=== PATIENT | female | born 1935 | race Caucasian/White ===

== ENCOUNTER 2017-04-18 15:07 | Inpatient (IN) | payer MEDICARE, BC ==
--- NOTE | 2017-04-18 15:21 | ERNOTE ---
Lower Extremity HPI - General Lower Extremities Pain: leg: left Time Seen by Provider: 04/18/17 15:07 Source: patient, EMS Exam Limitations: no limitations - Immun/Allergies/Home Medications Allergies/Adverse Reactions: Allergies Allergy/AdvReac Type Severity Reaction Status Date / Time whole graines Allergy Uncoded 04/18/17 15:23 Home Medications: HOME MEDICATIONS Albuterol Sulfate [Proair Respiclick] 90 mcg IH PRN PRN 04/18/17 [Last Taken Unknown] Calc/D3/Mag/Zn/Noel/Andriy/[place] [Calcium 600 mg Plus Vit D Tab] 1 each PO DAILY 04/18/17 [Last Taken Unknown] Cholecalciferol (Vitamin D3) [Vitamin D3] 1,000 unit PO DAILY 04/18/17 [Last Taken Unknown] Clobetasol Propionate/Emoll [Clobetasol Emollient 0.05% Crm] 1 appl TP DAILY PRN 04/18/17 [Last Taken Unknown] Gabapentin 300 mg PO HS 04/18/17 [Last Taken Unknown] Metoprolol Tartrate [Lopressor] 50 mg PO BID 04/18/17 [Last Taken Unknown] Polyethylene Glycol 3350 [Miralax] 17 gm PO DAILY 04/18/17 [Last Taken Unknown] Sertraline HCl [Zoloft] 50 mg PO DAILY 04/18/17 [Last Taken Unknown] traMADol HCL [Ultram] 50 mg PO PRN 04/18/17 [Last Taken Unknown] - History of Present Illness Narrative: Patient fell on the side walk on her left side, was unable to get up, EMS reported deformity,unable to palpate pulse, applied traction and were able to palpate pulse, fentanyl given for pain. Patient denies hitting her head, no loss of consciousness, no other injuries. She has melon before 09:30 and two cups of coffee till 12:30 Review of Systems - Review of Systems Constitutional: Absent: recent illness, fever EYE: Absent: vision changes ENT: Absent: sore throat Respiratory: Absent: shortness of breath Cardiology: Absent: chest pain Gastrointestinal/Abdominal: Present: nausea. Absent: vomiting, abdominal pain Genitourinary: Present: no symptoms reported Musculoskeletal: Present: no symptoms reported. Absent: back pain, neck pain Neurological: Absent: headache, weakness, numbness - Patient's Past Medical History Patient History - Medical: No pertinent hx Patient History - Cardiac/Respiratory: COPD, Hypertension Patient History - Cancer: No Hx of Cancer Patient History - Surgical Procedures: Hysterectomy - Family History Mother Family History - Medical: , Arthritis, Glaucoma Family History - Cancer: Bone Father Family History - Medical: , No pertinent hx Family History - Cardiac/Respiratory: No pertinent hx Family History - Cancer: No pertinent family hx Physical Exam - Physical Exam General Appearance: Present: wd/wn, alert, mild distress Head Exam: Present: normal inspection, no evidence of injury Ears, Nose, Throat: Present: normal pharynx Neck: Present: normal inspection, nontender Respiratory: Present: no respiratory distress, normal breath sounds, no accessory muscle use, lungs clear Cardiovascular/Chest: Present: regular rate, rhythm, no murmur Peripheral Pulses: N=norm/S=strong/W=weak/B=bound/A=absent: Dorsalis-pedis (L): Weak Gastrointestinal/Abdominal: Present: normal bowel sounds, nontender, nondistended Back Exam: Present: no CVA tenderness, no vertebral tenderness Extremity Exam: Present: normal except - - left femur shortened and visiable deformed, no other pain Neurological Exam: Present: alert, oriented, normal mood/affect, no motor/ sensory deficits Skin Exam: Present: normal color, warm/dry ED Progress - Vital Signs Patient's Vital Signs:: I have reviewed the patient's vital signs. - X-Ray X-Ray #1 X-Ray: femur - left femur shaft fracture Interpretation: Interp. by me - Progress/Reassessment Progress Note-Subjective: 04/18/17 16:[address] Young, call anesthesia for procedure 04/18/17 17:52 as required femur nail is not available till later, patient will be admitted and have surgery in the am patient comfortable after pain medication Departure Clinical Impression: Femur fracture, left Qualifiers: Encounter type: initial encounter Femur location: shaft Fracture type: closed Fracture morphology: transverse Fracture alignment: displaced Qualified Code(s) : S72.322A - Displaced transverse fracture of shaft of left femur, initial encounter for closed fracture - Departure Disposition: [facility] Condition: Good
[2017-04-18] MEDS ORDERED: ONDANSETRON HCL/PF 2 MG/ML VIAL ONE (15:27)
[2017-04-18] MEDS ORDERED: ONDANSETRON HCL/PF 2 MG/ML VIAL IV ONE (15:29)
[2017-04-18] MEDS ORDERED: HYDROmorphone HCL 1 MG/ML DISP.SYRIN ONE (16:12)
[2017-04-18] MEDS ORDERED: HYDROmorphone HCL 1 MG/ML DISP.SYRIN IV ONE (16:12)
[2017-04-18] MEDS ORDERED: HYDROmorphone HCL 1 MG/ML DISP.SYRIN IV PRN (17:44)
[2017-04-18] MEDS ORDERED: ACETAMINOPHEN 500 MG TABLET PO PRN (17:44)
--- NOTE | 2017-04-18 17:51 | CONS ---
[facility] - General Date of Service: 04/18/17 Narrative: Kate is an 81 yo F who sustained a L proximal third femoral shaft fracture after a fall from standing height. She was initially brought to the [facility] ED for evaluation. Workup revealed the above fracture and no other injuries. She was placed in a traction device in the field and upon initial evaluation in the ED she had dopplerable but non-palpable pulses. Upon my evaluation in the ED, I removed the traction device, which was making the fracture angulation worse, and pulled longitudinal traction placing the leg in better alignment. Following this, she had a palpable DP and PT pulse. She complains only of L thigh pain in the ED. She denies LOC or any other extremity pain. She denies any numbness or tingling in the LLE. - History of Present Illness Allergies/Adverse Reactions: Allergies whole graines Allergy (Uncoded 04/18/17 15:23) Home Medications: Home Medications Medication Instructions Recorded Last Taken Albuterol Sulfate [Proair 90 mcg IH PRN PRN 04/18/17 Unknown Respiclick] Calc/D3/Mag/Zn/Noel/Andriy/[place] 1 each PO DAILY 04/18/17 Unknown [Calcium 600 mg Plus Vit D Tab] Cholecalciferol (Vitamin D3) 1,000 unit PO DAILY 04/18/17 Unknown [Vitamin D3] Clobetasol Propionate/Emoll 1 appl TP DAILY PRN 04/18/17 Unknown [Clobetasol Emollient 0.05% Crm] Diphenhydramine HCl 25 mg PO PRN 04/18/17 Unknown Gabapentin 300 mg PO HS 04/18/17 Unknown Lisinopril [Zestril] 40 mg PO DAILY 04/18/17 Unknown Metoprolol Tartrate [Lopressor] 50 mg PO BID 04/18/17 Unknown Polyethylene Glycol 3350 [Miralax] 17 gm PO DAILY 04/18/17 Unknown Sertraline HCl [Zoloft] 50 mg PO DAILY 04/18/17 Unknown traMADol HCL [Ultram] 50 mg PO PRN 04/18/17 Unknown - Patient's Past Medical History Patient History - Medical: Osteoporosis Patient History - Cardiac/Respiratory: COPD, Hypertension Patient History - Surgical Procedures: Appendectomy, Hysterectomy Patient History - Other: None - Social History Psych History: No pertinent hx Smoking Status: Former smoker Alcohol Use: none Drug Use: none - Immunizations Immunizations Up to Date: Yes Procedures ENDOSC POLYPECTOMY OF LG INTEST (06/19/06) ESOPHAGOGASTRODUODENOSCOPY [EGD] W/CLOSED BIOPSY (06/19/06) Review of Systems - Review of Systems Narrative: As per HPI, otherwise negative. Physical Examination - Exam Narrative: Gen: A&Ox4, NAD, resting comfortably Resp: breathing non-labored, O2 sats 96% on RA MSK: LLE--> obvious deformity of the proximal thigh with anterior and lateral angulation deformity at the fracture site, no open wounds or abrasions, SILT, 5/ 5 EHL/FHL/DF/PF, palpable DP and PT pulses following gentle reduction maneuver with longitudinal traction Radiology: Plain films of the L femur reviewed which demonstrate an oblique fracture of the proximal third femoral shaft with significant anterolateral angulation, no fracture of the femoral neck noted. Vital Signs: Vital Signs - Last Taken Temp 36.3 C L 04/18/17 15:14 Pulse 41 L 04/18/17 17:11 Resp 15 04/18/17 17:11 BP 148/41 04/18/17 17:11 Pulse Ox 97 04/18/17 17:11 O2 Oxygen Delivery Method Room Air - Results and Findings: Narrative: 81 yo F w/ L proximal third femoral shaft fracture. - admit to Ortho service - discussed treatment options with the patient in detail and recommended antegrade intramedullary femoral nailing based on the fracture pattern and location. I discussed the risks of surgery in detail with the patient including , but not limited to, infection, bleeding, neurovascular injury, malunion/ nonunion, malrotation, persistent pain, stiffness, implant failure, wound complications, DVT/PE, anesthetic complications, and postoperative convalescence. I explained that the benefit of the surgery is to be able to get her up and mobilizing without restrictions right away after surgery. After discussion, she wishes to proceed with intramedullary nailing of the L femur. Informed consent obtained in the ED. Extremity marked. - We do not have antegrade femoral nails in house, they have to be brought in and won't be here until at least 10 pm, therefore we will plan on doing this first thing in the morning. We will place the patient in 20 lbs of Muñiz's traction overnight with IV pain control. - Dilaudid 0.5 mg q2h prn pain - Valium for muscle spasms - NPO @ MN - hold anticoagulation in preparation for surgery - SCDs/chula blakely - peters catheter - Medicine consult for medical co-management - Assessments/Findings (1) Femur fracture, left Problem: Acute
[2017-04-18] MEDS ORDERED: CLOBETASOL PROPIONATE/EMOLL 60 APPL TUBE TP PRN (17:55)
[2017-04-18 18:14] LABS: Hematocrit 34.8 % (37.0-47.0); Hemoglobin 11.6 gm/dL (12.5-16.0); Mean Cell Volume 91.8 fl (78-100); Mean Corpuscular Hemoglobin 30.6 pg (27-31); Mean Corpuscular Hgb Conc 33.3 g/dl (32-36); Mean Platelet Volume 9.9 fl (6.0-9.5); Neutrophil # 10.5 K/mm3 (1.3-6.0); Neutrophil % 80.8 % (42-75.0); Platelet Count 193 K/mm3 (150-450); Red Blood Count 3.79 M/mm3 (4.2-5.4); Red Cell Distribution Width 13.2 % (11.5-14.0)
[2017-04-18] MEDS: oxyCODONE HCL/ACETAMINOPHEN 1 TAB TABLET PO PRN (18:24)
[2017-04-18 18:42] LABS: Anion Gap 12.6 mmol/L (6.8-13.8); BUN/Creatinine Ratio 24.3 (9.0-21.6); Calcium * 8.7 mg/dL (7.9-10.9); Estimated Creat Clear 35.7; Potassium 4.6 mmol/L (3.4-4.6)
[2017-04-18] MEDS ORDERED: ALBUTEROL SULFATE 60 PUFF INHALER IH PRN ×2 (18:47→18:50)
[2017-04-18] MEDS: HYDROmorphone HCL 1 MG/ML DISP.SYRIN IV PRN ×2 (18:52→22:11)
[2017-04-18] MEDS: DIAZEPAM 5 MG/ML SYRG IV PRN (18:58)
--- NOTE | 2017-04-18 21:03 | HP ---
Chief Complaint - Chief Complaint Date of Service: 04/18/17 Time of Service: 20:40 Chief Complaint: left femur fracture, medical management History of Present Illness: Kate is an 81 year old female patient of Dr Olivas with a PMH of HTN, GERD, JAMES, COPD, HLD, and osteoporosis who presented to the ER today with c/o left hip pain s/p fall. Patient states that she was walking on an uneven sidewalk when she became unsteady and fell, landing on her left side. ER eval revealed elevated wbc at 13.0 with 80.0% neutrophils. h/h 11.6/34.8 (last hgb check this year was 12.5). Bun/Cr 25/1.03. Femur xray showed acute angulated transverse fracture to the proximal femoral diaphysis. Dr. Young (orthopedics) was consulted by ERP who recommended surgical repair but due to the pins not in stock till late tonight, surgery has been scheduled for tomorrow morning. Medicine was consulted for medical management of the patient before and after surgery. - Patient's Past Medical History Patient History - Medical: Anxiety - 1986, GERD - 2005, Osteoporosis - 02/26/06, Other - hiatal hernia, large, 08/1999; lichen sclerosis - 12/24/2011; urinary incontinence Patient History - Cardiac/Respiratory: COPD - uses albuterol inhaler only prn, Hypertension - 1986, Hyperlipidemia - 1988, Other - palpitations - 1986 Patient History - Cancer: No Hx of Cancer Patient History - Surgical Procedures: Appendectomy - 1983, Colonoscopy - - diminutive polyp, melanosis coli, tortuous colon; , EGD - 06/19/06 - large hital hernia, possible hypertrophied fold due to pyloric sphincter, chronic inflammation; , Hysterectomy - 1968, T & A, Other - exploratory lap done for adhesions - 1983 Patient History - Other: None LMP (females 10-50): Menopausal - Family History Mother Family History - Medical: , Arthritis, Glaucoma Family History - Cancer: Bone Father Family History - Medical: , No pertinent hx Family History - Cardiac/Respiratory: No pertinent hx Family History - Cancer: No pertinent family hx - Social History Living Situations: other Abuse History: No History of abuse Psych History: No pertinent hx Smoking Status: Former smoker - 1/2 PPD for 10 years - quit before 1963. Have you smoked in the past 12 months: No Do you dip or chew tobacco: No Patient requests Smoking Cessation Consult: No Initiate information on Smoking Cessation: No Alcohol Use: none Drug Use: none - Immunizations Immunizations Up to Date: Yes Review Of Systems (GEN) - Review of Systems Generalized/Overall Review: Present: No Symptoms Reported EENTM: Present: No Symptoms Reported Respiratory: Present: No Symptoms Reported Cardiac: Present: No Symptoms Reported Abdominal: Present: No Symptoms Reported Genitourinary: Present: Frequency, Incontinent Musculoskeletal: Present: Joint Pain Neurological: Present: No Symptoms Reported Skin: Present: No Symptoms Reported Endocrine: Present: No Symptoms Reported Misc: All systems neg except as marked Immunizations: IMMUNIZATION HX Immunizations Up to Date Yes Allergies/Adverse Reactions: Allergies Allergy/AdvReac Type Severity Reaction Status Date / Time whole graines Allergy Uncoded 04/18/17 15:23 Home Medications: HOME MEDICATIONS Albuterol Sulfate [Proair Respiclick] 90 mcg IH PRN PRN 04/18/17 [Last Taken Unknown] Calc/D3/Mag/Zn/Noel/Andriy/[place] [Calcium 600 mg Plus Vit D Tab] 1 each PO DAILY 04/18/17 [Last Taken Unknown] Cholecalciferol (Vitamin D3) [Vitamin D3] 1,000 unit PO DAILY 04/18/17 [Last Taken Unknown] Clobetasol Propionate/Emoll [Clobetasol Emollient 0.05% Crm] 1 appl TP DAILY PRN 04/18/17 [Last Taken Unknown] Gabapentin 300 mg PO HS 04/18/17 [Last Taken Unknown] Metoprolol Tartrate [Lopressor] 50 mg PO BID 04/18/17 [Last Taken Unknown] Polyethylene Glycol 3350 [Miralax] 17 gm PO DAILY 04/18/17 [Last Taken Unknown] Sertraline HCl [Zoloft] 50 mg PO DAILY 04/18/17 [Last Taken Unknown] traMADol HCL [Ultram] 50 mg PO PRN 04/18/17 [Last Taken Unknown] Exam - Exam Vital Signs: Vital Signs - Last Taken Temp 36.7 C 04/18/17 17:58 Pulse 43 L 04/18/17 17:58 Resp 16 04/18/17 17:58 BP 132/81 04/18/17 17:58 Pulse Ox 99 04/18/17 17:58 Constitutional: Present: Alert, Oriented x3, Cooperative, No distress, Elderly ENT Exam: Present: hearing grossly normal Eye Exam: bilateral eye: normal inspection Neck: Present: supple Back Exam: Present: no vertebral tenderness Breasts: Present: Exam deferred Respiratory: Present: lungs clear, normal breath sounds, no respiratory distress , no accessory muscle use Cardiovascular/Chest: Present: normal peripheral pulses, regular rate, rhythm, no chest tenderness, no edema, bradycardia Peripheral Pulses: carotid (R): 2+, carotid (L): 2+, dorsalis-pedis (R): 2+, dorsalis-pedis (L): 1+, radial (R): 2+, radial (L): 2+ Abdomen: Present: Normal bowel sounds, soft, nontender, nondistended /Rectal: Present: Exam deferred Extremity: Present: normal inspection - right leg, leg pain - left Skin Exam: Present: warm/dry, no cyanosis, pallor Diagnostic Studies: Abnormal Lab Results 04/18/17 04/18/17 Range/Units 18:10 18:10 WBC 13.0 H (4.0-10.5) K/mm3 RBC 3.79 L (4.2-5.4) M/mm3 Hgb 11.6 L (12.5-16.0) gm/dL Hct 34.8 L (37.0-47.0) % MPV 9.9 H (6.0-9.5) fl Immature Gran # (Auto) 0.04 H (0.000-0.0310) K/mm3 Neutrophils % 80.8 H (42-75.0) % Lymphocytes % 13.5 L (20-51) % Neutrophils # 10.5 H (1.3-6.0) K/mm3 BUN 25 H (3-23) mg/dL Est GFR (Non-Af Amer) 54 L (60-130) mL/min BUN/Creatinine Ratio 24.3 H (9.0-21.6) Random Glucose 132 H (70-110) mg/dL Laboratory Results WBC 13.0 K/mm3 (4.0-10.5) H 04/18/17 18:10 RBC 3.79 M/mm3 (4.2-5.4) L 04/18/17 18:10 Hgb 11.6 gm/dL (12.5-16.0) L 04/18/17 18:10 Hct 34.8 % (37.0-47.0) L 04/18/17 18:10 MCV 91.8 fl (78-100) 04/18/17 18:10 MCH 30.6 pg (27-31) 04/18/17 18:10 MCHC 33.3 g/dl (32-36) 04/18/17 18:10 RDW 13.2 % (11.5-14.0) 04/18/17 18:10 Plt Count 193 K/mm3 (150-450) 04/18/17 18:10 MPV 9.9 fl (6.0-9.5) H 04/18/17 18:10 Immature Gran % (Auto) 0.30 % (0.001-0.429) 04/18/17 18:10 Immature Gran # (Auto) 0.04 K/mm3 (0.000-0.0310) H 04/18/17 18:10 Neutrophils % 80.8 % (42-75.0) H 04/18/17 18:10 Lymphocytes % 13.5 % (20-51) L 04/18/17 18:10 Monocytes % 4.7 % (0.0-9) 04/18/17 18:10 Eosinophils % 0.5 % (0.0-3.0) 04/18/17 18:10 Basophils % 0.2 % (0.0-1.0) 04/18/17 18:10 Nucleated RBC % 0.0 k/mm3 (0-1) 04/18/17 18:10 Neutrophils # 10.5 K/mm3 (1.3-6.0) H 04/18/17 18:10 Lymphocytes # 1.8 k/mm3 (1.5-3.5) 04/18/17 18:10 Monocytes # 0.6 k/mm3 (0.0-1.0) 04/18/17 18:10 Eosinophils # 0.1 k/mm3 (0.0-0.7) 04/18/17 18:10 Absolute Basophils 0.0 k/mm3 (0.0-0.1) 04/18/17 18:10 Sodium 140 mmol/L (132-142) 04/18/17 18:10 Plasma Sodium 141 mmol/L (130-142) 04/18/17 18:10 Potassium 4.6 mmol/L (3.4-4.6) 04/18/17 18:10 Chloride 104 mmol/L (97-106) 04/18/17 18:10 Carbon Dioxide 28.0 mmol/L (24-32.6) 04/18/17 18:10 Anion Gap 12.6 mmol/L (6.8-13.8) 04/18/17 18:10 BUN 25 mg/dL (3-23) H 04/18/17 18:10 Creatinine 1.03 mg/dL (0.4-1.4) 04/18/17 18:10 Est GFR (Non-Af Amer) 54 mL/min (60-130) L 04/18/17 18:10 BUN/Creatinine Ratio 24.3 (9.0-21.6) H 04/18/17 18:10 Random Glucose 132 mg/dL (70-110) H 04/18/17 18:10 Calcium 8.7 mg/dL (7.9-10.9) 04/18/17 18:10 Assessment/Plan - Narrative Narrative: Left femur fracture - currently in Muñiz's tractions per ortho - scheduled for surgical repair in am. - encourage good pain management - valium as needed for muscle spasms - NPO p MN - will start IV fluids since NPO - D5LR at 100 ml/hr - also with urinary frequency / incontience - may be normal age varient but check UA as possible contributor to fall - insert peters due to fracture - due to age, bradycardia, smoking history --> obtain preop EKG - preop EKG shows sinus bradycardia. no significant / acute change from EKG done in 2010. - OK to proceed with surgery. Bradycardia - records shows heart rate trending down over the last 2-3 years - in the last year, heart rate in clinic recorded at 40 and 44 bpm. - heart rate in hospital 43 bpm - monitor on telemetry as a precaution - hold metoprolol tonight due to bradycardia - patient uses metoprolol for HTN, in addition to lisinopril. - Can use other anti-hypertensive meds if HR remains too low but BP rises. Stable Medical conditions - HTN - lisinopril 40 mg daily - metoprolol tartarte 50 mg bid - hold for HR < 45 - HLD - diet controlled - JAMES - zoloft 25 mg daily - COPD - albuterol inhaler PRN Code Status: Full Code with Restrictions VTE: none due to surgery in am / lower extremity injury GI proph: protonix po. - Assessment/Plan (1) Femur fracture, left Problem: Acute Qualifiers: Encounter type: initial encounter Femur location: shaft Fracture type: closed Fracture morphology: transverse Fracture alignment: displaced Qualified Code(s): S72.322A - Displaced transverse fracture of shaft of left femur, initial encounter for closed fracture (2) HTN (hypertension) Problem: Chronic Qualifiers: Hypertension type: essential hypertension Qualified Code(s): I10 - Essential (primary) hypertension (3) HLD (hyperlipidemia) Problem: Chronic Qualifiers: Hyperlipidemia type: unspecified Qualified Code(s): E78.5 - Hyperlipidemia , unspecified (4) JAMES (generalized anxiety disorder) Problem: Chronic (5) COPD (chronic obstructive pulmonary disease) Problem: Chronic Qualifiers: COPD type: unspecified COPD Qualified Code(s): J44.9 - Chronic obstructive pulmonary disease, unspecified (6) GERD (gastroesophageal reflux disease) Problem: Chronic Qualifiers: Esophagitis presence: without esophagitis Qualified Code(s): K21.9 - Gastro -esophageal reflux disease without esophagitis (7) Bradycardia Problem: Chronic
[2017-04-18] MEDS: METOPROLOL TARTRATE 50 MG TABLET PO SCH (21:08)
[2017-04-18 22:12] LABS: Urine Bilirubin Negative (NEGATIVE); Urine Ketone 5 mg/dL (NEGATIVE); Urine Nitrite Negative (NEGATIVE); Urine Protein Negative (NEGATIVE); Urine Specific Gravity >=1.030 SP.GR. (1.005-1.010); Urine Urobilinogen Normal (NORMAL); Urine pH 5.5 pH (5.0-7.0)
[2017-04-18 22:47] LABS: Urine Appearance Clear; Urine Bacteria 3+; Urine Blood 5 /ul (NEGATIVE); Urine Color Yellow; Urine Hyaline Cast 0-5 /LPF; Urine RBC 0-5 /hpf (0-5); Urine WBC 0-5 /hpf (0-5)
[2017-04-19] MEDS: oxyCODONE HCL/ACETAMINOPHEN 1 TAB TABLET PO PRN (01:49)
[2017-04-19] MEDS: HYDROmorphone HCL 1 MG/ML DISP.SYRIN IV PRN (01:49)
[2017-04-19] MEDS: DIAZEPAM 5 MG/ML SYRG IV PRN (02:47)
[2017-04-19] MEDS ORDERED: DIAZEPAM 5 MG/ML SYRG IV ONE (02:50)
[2017-04-19] MEDS ORDERED: FLUMAZENIL 0.1 MG/ML VIAL IV ONE ×2 (02:55)
[2017-04-19] MEDS ORDERED: HYDROmorphone HCL 1 MG/ML DISP.SYRIN IM PRN (03:08)
[2017-04-19] MEDS: DEXTROSE 5%-LACTATED RINGERS 1,000 ML IV PRN ×2 (03:11→06:55)
--- NOTE | 2017-04-19 03:22 | PN ---
Progess Note - Interim Narrative: 04/19/17 03:15 At 0245 went to check on patient. nursing establishing new IV. pt c/o severe leg cramps. states that 5 mg valium did not work at all that was given earlier tonight. Ordered an additional 5 mg iv valium. immediately after 2nd dose of iv valium was pushed, pt developed severe respiratory depression. unresponsive to sternal rub. strong radial pulse. sats dropped into the low 70s. O2 immediately applied by myself at 15 L non-rebreather mask. sats immediately increased to above 93%. orders given for romazicon 0.5 mg iv x1 now and this was given by nursing staff. once given, patient immediately awoke and once talking with patient she was A&Ox3. orders entered to d/c iv valium and will add to allergy list on patient's chart. SG
[2017-04-19] MEDS ORDERED: PANTOPRAZOLE SODIUM 40 MG in NORMAL SALINE 100 ML IV ONE (03:34)
--- NOTE | 2017-04-19 03:36 | PN ---
Subjective - Date and Time Seen Date: 04/19/17 Time: 03:27 Subjective Narrative: states hip pain is controlled with iv medications. c/o muscle cramps but states that ice helps. schedule to have left femur repaired today. Objective - Review of Systems Generalized/Overall Review: Reports: No Symptoms Reported EENTM: Reports: No Symptoms Reported Respiratory: Reports: No Symptoms Reported Cardiac: Reports: No Symptoms Reported Abdominal: Reports: No Symptoms Reported Genitourinary Symptoms: Reports: No Symptoms Reported Musculoskeletal Complaints: Reports: Joint Pain, Joint Swelling, Muscle Pain, Other - muscle cramps Neurological: Reports: No Symptoms Reported Skin: Reports: No Symptoms Reported Endocrine: Reports: No Symptoms Reported Misc: All systems neg except as marked - Vitals Vitals: Last Vital Signs Temp 36.4 C L 04/18/17 23:19 Pulse 50 L 04/18/17 23:19 Resp 20 04/18/17 23:19 BP 146/51 04/18/17 23:19 Pulse Ox 92 04/18/17 23:19 - Abnormal Lab Findings Abnormal Lab Findings: Abnormal Lab Results 04/18/17 04/18/17 04/18/17 Range/Units 18:10 18:10 22:00 WBC 13.0 H (4.0-10.5) K/mm3 RBC 3.79 L (4.2-5.4) M/mm3 Hgb 11.6 L (12.5-16.0) gm/dL Hct 34.8 L (37.0-47.0) % MPV 9.9 H (6.0-9.5) fl Immature Gran # (Auto) 0.04 H (0.000-0.0310) K/mm3 Neutrophils % 80.8 H (42-75.0) % Lymphocytes % 13.5 L (20-51) % Neutrophils # 10.5 H (1.3-6.0) K/mm3 BUN 25 H (3-23) mg/dL Est GFR (Non-Af Amer) 54 L (60-130) mL/min BUN/Creatinine Ratio 24.3 H (9.0-21.6) Random Glucose 132 H (70-110) mg/dL Urine Blood 5 H (NEGATIVE) /ul Urine Bacteria 3+ H (NONE) Hyaline Casts 0-5 H (NONE) /LPF - EKG/Xray Findings EKG: other - sinus bradycardia EKG read: Interp. by me - Exam Constitutional: Present: Alert, Cooperative, No distress, Elderly ENT Exam: Present: hearing grossly normal Neck: Present: supple Breasts: Present: Exam deferred Respiratory: Present: normal breath sounds, no respiratory distress, no accessory muscle use Cardiovascular/Chest: Present: normal peripheral pulses, regular rate, rhythm, no chest tenderness, bradycardia Abdomen: Present: soft, nontender, nondistended /Rectal: Present: Exam deferred Extremity: Present: normal inspection - right leg, leg pain - left Skin Exam: Present: warm/dry, no cyanosis, pallor Cauti Physician Documentation - Urinary Catheter Management Urethral (Peters) Urethral Indwelling: Yes Reason for Continuing Indwelling Catheter: Pelvic fractures Date of Insertion: 04/18/17 Time of Insertion: 09:45 Assessment/Plan Plan Narrative: Left femur fracture - currently in Muñiz's tractions per ortho - scheduled for surgical repair this am - encourage good pain management - c/o leg cramps - recheck bmp this am with Mg - NPO - IV fluids since NPO - D5LR at 150 ml/hr - also with urinary frequency / incontience - may be normal age varient but check UA as possible contributor to fall - peters due to fracture - preop EKG shows sinus bradycardia. no significant / acute change from EKG done in 2010. - OK to proceed with surgery. Bradycardia - records shows heart rate trending down over the last 2-3 years - in the last year, heart rate in clinic recorded at 40 and 44 bpm. - heart rate in hospital 43 bpm - monitor on telemetry as a precaution - hold metoprolol for HR <45 - patient uses metoprolol for HTN, in addition to lisinopril. - Can use other anti-hypertensive meds if HR remains too low but BP rises. Stable Medical conditions - HTN - lisinopril 40 mg daily - metoprolol tartarte 50 mg bid - hold for HR < 45 - HLD - diet controlled - JAMES - zoloft 25 mg daily - COPD - albuterol inhaler PRN Code Status: Full Code with Restrictions VTE: none due to surgery in am / lower extremity injury GI proph: protonix iv x1 dose this am due to NPO, then start protonix po daily. - Problems/Diagnosis (1) Femur fracture, left Problem: Acute Qualifiers: Encounter type: initial encounter Femur location: shaft Fracture type: closed Fracture morphology: transverse Fracture alignment: displaced Qualified Code(s): S72.322A - Displaced transverse fracture of shaft of left femur, initial encounter for closed fracture (2) HTN (hypertension) Problem: Chronic Qualifiers: Hypertension type: essential hypertension Qualified Code(s): I10 - Essential (primary) hypertension (3) HLD (hyperlipidemia) Problem: Chronic Qualifiers: Hyperlipidemia type: unspecified Qualified Code(s): E78.5 - Hyperlipidemia , unspecified (4) JAMES (generalized anxiety disorder) Problem: Chronic (5) COPD (chronic obstructive pulmonary disease) Problem: Chronic Qualifiers: COPD type: unspecified COPD Qualified Code(s): J44.9 - Chronic obstructive pulmonary disease, unspecified (6) GERD (gastroesophageal reflux disease) Problem: Chronic Qualifiers: Esophagitis presence: without esophagitis Qualified Code(s): K21.9 - Gastro -esophageal reflux disease without esophagitis (7) Bradycardia Problem: Chronic
[2017-04-19 03:59] LABS: Hematocrit 32.2 % (37.0-47.0); Hemoglobin 10.8 gm/dL (12.5-16.0); Mean Cell Volume 92.5 fl (78-100); Mean Corpuscular Hgb Conc 33.5 g/dl (32-36); Mean Platelet Volume 10.3 fl (6.0-9.5); Neutrophil # 4.7 K/mm3 (1.3-6.0); Neutrophil % 68.1 % (42-75.0); Platelet Count 161 K/mm3 (150-450); Red Blood Count 3.48 M/mm3 (4.2-5.4); Red Cell Distribution Width 13.1 % (11.5-14.0); White Blood Count 6.9 K/mm3 (4.0-10.5)
[2017-04-19 04:37] LABS: Anion Gap 10.7 mmol/L (6.8-13.8); BUN/Creatinine Ratio 24.8 (9.0-21.6); Calcium * 8.6 mg/dL (7.9-10.9); Carbon Dioxide 27.5 mmol/L (24-32.6); Estimated Creat Clear 36.4; Magnesium 1.8 mg/dL (1.2-2.8); Potassium 4.2 mmol/L (3.4-4.6)
[2017-04-19] MEDS ORDERED: ALBUTEROL SULFATE 2.5 MG/3 ML VIAL.NEB IH PRN (06:22)
[2017-04-19] MEDS ORDERED: PANTOPRAZOLE SODIUM 40 MG TABLET.EC PO SCH (07:00)
[2017-04-19] MEDS ORDERED: ceFAZolin SODIUM 1 GM VIAL IV ONE (07:25)
[2017-04-19] MEDS ORDERED: ceFAZolin SODIUM 1 GM VIAL IV PRN (07:25)
[2017-04-19] MEDS ORDERED: RINGER'S SOLUTION,LACTATED 1,000 ML IV ONE (08:00)
[2017-04-19] MEDS ORDERED: POLYETHYLENE GLYCOL 3350 119 GM BTL PO SCH (09:00)
[2017-04-19] MEDS ORDERED: LISINOPRIL 40 MG TABLET PO SCH (09:00)
[2017-04-19] MEDS ORDERED: ONDANSETRON HCL/PF 2 MG/ML VIAL IV PRN (09:49)
[2017-04-19] MEDS ORDERED: oxyCODONE HCL/ACETAMINOPHEN 1 TAB TABLET PO PRN (09:49)
[2017-04-19] MEDS ORDERED: PROMETHAZINE HCL 5 MG in DEXTROSE 5 % IN WATER 50 ML IV PRN ×2 (09:49)
[2017-04-19] MEDS ORDERED: diphenhydrAMINE HCL 50 MG/ML VIAL IV PRN (09:49)
[2017-04-19] MEDS ORDERED: MAGNESIUM HYDROXIDE 30 ML UDC PO PRN (09:49)
[2017-04-19] MEDS ORDERED: MAG HYDROX/ALUMINUM HYD/SIMETH 30 ML UDC PO PRN (09:49)
[2017-04-19] MEDS ORDERED: CYCLOBENZAPRINE HCL 10 MG TABLET PO PRN (09:51)
--- NOTE | 2017-04-19 09:58 | OR ---
Operative Report - Dictated Report Narrative: Date: 04/19/2017 Surgeon: Pedro Young M.D. Embroiderer: None Preoperative diagnosis: Left displaced, proximal third femoral shaft fracture Postoperative diagnosis: Left displaced, proximal third femoral shaft fracture Operations and procedures: 1. Closed reduction, anterograde intramedullary fixation left femoral shaft fracture 2. Intraoperative interpretation of radiographs Anesthesia: Spinal Specimens: None Estimated blood loss: 250 Milliliters Retained implants: [employer] antegrade femoral nail size 10 mm by 38 centimeter nail with 80 millimeter and 100 mm femoral head screws with 2 distal locking screws Complications: None Indications for procedure: Seth robins is an 81-year-old female with a history of mild COPD and hypertension who injured the left leg after a trip and fall from standing height on a sidewalk. They were admitted to the hospital after being evaluated in the emergency department. Once the medical provider felt that they were stable for surgical treatment, the risks and benefits alternatives were discussed. The risks of , blood clots, bleeding, infection, nerve/tendon/ blood vessel injury, malunion, nonunion, failure of implants, painful implants, arthrosis, and need for additional procedures were discussed. The extremity was marked and consent was obtained on the floor. Procedure: After marking the operative extremity on the floor, the patient was taken to the operating room. A timeout was performed. IV antibiotics consisting of 1 g of Ancef were administered. A spinal anesthetic was induced by anesthesia, and the patient was then placed onto a fracture table with a well-padded perineal post. The nonoperative leg was placed in lithotomy position in a well-padded leg poe. The operative leg was placed in a well-padded traction boot. Longitudinal traction and adduction were utilized in order to preliminarily reduced the fracture. Preliminary images were attained utilizing C-arm in both the AP and lateral views. This confirmed that we had obtained adequate visualization of the fracture. Next the hip was then prepped and draped in a standard sterile fashion. Next the guidewire was placed percutaneously proximal to the greater trochanter to imer a starting point at the tip of the greater trochanter centered on the lateral view. This was passed down to the level below the lesser trochanter. A scalpel was utilized in order to dissect down to the greater trochanter in order to lace the soft tissue protector down to bone. The entry drill was then placed down the proximal femur to the level of the lesser trochanter. A ball- tipped guidewire was then advanced down the femoral shaft. Manual manipulation at the fracture site was used to achieve reduction and the guidewire was passed across the fracture and into the distal portion of the shaft. We confirmed intramedullary position of the ball-tip guidewire with the C-arm on AP and lateral views. This was advanced down to the distal physes scar just distal to the superior pole of the patella. We measured our nail length at 380 mm. Next sequential reaming was performed with flexible intramedullary reamers starting with a 9 mm end-cutting reamer and advancing by half millimeter increments all the way up to 11.5 mm which had excellent chatter. A 10 mm x 380 mm antegrade femoral nail was chosen this was advanced over the ball-tipped guidewire into the appropriate depth based on AP of the hip. We chose to proceed with 2 femoral head screws for proximal fixation. Using the alignment device on the outrigger, a mark incision was made over the lateral femur. Sharp dissection was carried through the iliotibial band down to the proximal femur. The 2 femoral head screw drill sleeves were placed through the outrigger. The more proximal screw location was drilled into the femoral head confirming center position on the lateral view. This was advanced to approximately within a centimeter of the articular surface was measured to be 80 mm. The screw was then placed. Next the more distal femoral head screw was drilled once again confirming center position through the neck and into the head on the lateral view. This was carried down within 1 cm of the subchondral bone and was measured at 100 mm. The 100 mm screw was then advanced into place. AP and lateral views confirmed good position of our 2 proximal femoral head screws. We then returned to the fracture site. Traction was taken off the operative leg allowing compression at the fracture site. Using the fracture leads on fluoroscopy as well as cortical thickness dialed in our rotational alignment. Attention was turned distally to our 2 distal interlocking screws which were placed using perfect circles technique. The static hole as well as the dynamic hole with a screw placed eccentric harsh dynamic position were utilized. We confirmed our interlocking screws were through the nail and of appropriate length using AP and lateral images on the C-arm. Final images were obtained and we were happy with position of our implants and the reduction of our fracture. The wounds were then copiously irrigated with normal saline. The subcutaneous tissue was closed with 3-0 Vicryl, and the skin was closed with gina. Sterile dressings of Xeroform, 4 x 4s, and Tegaderm were applied. All sponge, sharp, and instrument counts were correct prior to closing the wounds. The patient was then awoken and transferred to the postanesthesia care unit in stable condition.
[2017-04-19] MEDS: NORMAL SALINE 1,000 ML IV PRN ×3 (10:24→21:23)
[2017-04-19] MEDS: CHOLECALCIFEROL 1,000 UNIT CAPSULE PO SCH (10:46)
[2017-04-19] MEDS: CALCIUM CARBONATE/VITAMIN D3 1 TAB TABLET PO SCH (10:49)
[2017-04-19] MEDS: SERTRALINE HCL 50 MG TABLET PO SCH (10:50)
[2017-04-19] MEDS: METOPROLOL TARTRATE 50 MG TABLET PO SCH ×2 (10:52→20:15)
[2017-04-19] MEDS: ceFAZolin SODIUM 1 GM in DEXTROSE 5 % IN WATER 100 ML IV SCH ×6 (12:08→23:58)
[2017-04-19] MEDS: traMADol HCL 50 MG TABLET PO PRN (13:40)
[2017-04-19] MEDS: GABAPENTIN 300 MG CAPSULE PO SCH (20:15)
[2017-04-19] MEDS: SENNOSIDES/DOCUSATE SODIUM 1 TAB TABLET PO SCH (20:16)
[2017-04-20] MEDS: traMADol HCL 50 MG TABLET PO PRN ×2 (05:43→17:27)
[2017-04-20 06:09] LABS: Hematocrit 26.3 % (37.0-47.0); Hemoglobin 8.8 gm/dL (12.5-16.0); Mean Cell Volume 92.9 fl (78-100); Mean Corpuscular Hemoglobin 31.1 pg (27-31); Mean Corpuscular Hgb Conc 33.5 g/dl (32-36); Mean Platelet Volume 10.4 fl (6.0-9.5); Platelet Count 140 K/mm3 (150-450); Red Blood Count 2.83 M/mm3 (4.2-5.4); Red Cell Distribution Width 13.1 % (11.5-14.0); White Blood Count 5.7 K/mm3 (4.0-10.5)
[2017-04-20 06:24] LABS: Anion Gap 11.7 mmol/L (6.8-13.8); BUN/Creatinine Ratio 15.9 (9.0-21.6); Calcium * 7.9 mg/dL (7.9-10.9); Carbon Dioxide 25.5 mmol/L (24-32.6); Estimated Creat Clear 44.9; Potassium 4.2 mmol/L (3.4-4.6)
[2017-04-20] MEDS ORDERED: PANTOPRAZOLE SODIUM 40 MG TABLET.EC PO SCH (07:00)
--- NOTE | 2017-04-20 08:46 | PN ---
Subjective - Date and Time Seen Date: 04/20/17 Subjective Narrative: No events overnight. Pain controlled this am. Patient already mobilizing well. No complaints this am. Objective - Vitals Vitals: Last Vital Signs Temp 37.1 C 04/20/17 07:38 Pulse 58 L 04/20/17 07:38 Resp 18 04/20/17 07:38 BP 110/56 04/20/17 07:38 Pulse Ox 96 04/20/17 07:38 - Abnormal Lab Findings Abnormal Lab Findings: Abnormal Lab Results 04/20/17 04/20/17 Range/Units 05:50 05:50 RBC 2.83 L (4.2-5.4) M/mm3 Hgb 8.8 L (12.5-16.0) gm/dL Hct 26.3 L (37.0-47.0) % MCH 31.1 H (27-31) pg Plt Count 140 L (150-450) K/mm3 MPV 10.4 H (6.0-9.5) fl Random Glucose 115 H (70-110) mg/dL - Exam Exam Narrative: Gen: A&Ox4, NAD Resp: breathing non-labored MSK: LLE--> thigh mildly swollen, postoperative ecchymosis, dressings c/d/i, SILT, 5/5 EHL/FHL/DF/PF, cap refill brisk Cauti Physician Documentation - Urinary Catheter Management Urethral (Peters) Urethral Indwelling: Yes Date of Insertion: 04/18/17 Time of Insertion: 09:45 Assessment/Plan Plan Narrative: 81 yo F w/ L femoral shaft fx s/p IMN, POD #1. - WBAT, ROM as tolerated - reg diet - oral pain meds - Hgb 8.8 this am, continue to monitor - peters out - DVT ppx: lovenox/SCDs/teds - Medicine following for co-management - dispo: continue inpatient care, SNF placement planning ongoing - Problems/Diagnosis (1) Femur fracture, left Problem: Acute Qualifiers: Encounter type: initial encounter Femur location: shaft Fracture type: closed Fracture morphology: transverse Fracture alignment: displaced Qualified Code(s): S72.322A - Displaced transverse fracture of shaft of left femur, initial encounter for closed fracture
[2017-04-20] MEDS: ENOXAPARIN SODIUM 40 MG/0.4 ML SYRG SC SCH (09:33)
[2017-04-20] MEDS: CHOLECALCIFEROL 1,000 UNIT CAPSULE PO SCH (09:34)
[2017-04-20] MEDS: CALCIUM CARBONATE/VITAMIN D3 1 TAB TABLET PO SCH (09:34)
[2017-04-20] MEDS: POLYETHYLENE GLYCOL 3350 119 GM BTL PO SCH (09:35)
[2017-04-20] MEDS: SERTRALINE HCL 50 MG TABLET PO SCH (09:35)
[2017-04-20] MEDS: METOPROLOL TARTRATE 50 MG TABLET PO SCH ×2 (09:35→21:01)
--- NOTE | 2017-04-20 10:55 | PN ---
Subjective - Date and Time Seen Date: 04/20/17 Time: 10:50 Subjective Narrative: Patient seen and examined at bedside this morning. No acute issues overnight. Gilman catheter removed this morning; the patient has not yet urinated on her own since removing the Gilman catheter but again it was only removed shortly before I saw the patient. No BM since admission. Pain currently adequately controlled. Objective - Review of Systems Generalized/Overall Review: Reports: Weakness, Fatigue. Denies: Fever EENTM: Reports: No Symptoms Reported Respiratory: Reports: No Symptoms Reported Cardiac: Reports: No Symptoms Reported Abdominal: Reports: No Symptoms Reported Genitourinary Symptoms: Reports: No Symptoms Reported Musculoskeletal Complaints: Reports: Other - Left hip/thigh pain Neurological: Reports: No Symptoms Reported Skin: Reports: No Symptoms Reported Endocrine: Reports: No Symptoms Reported Misc: All systems neg except as marked - Vitals Vitals: Last Vital Signs Temp 37.1 C 04/20/17 07:38 Pulse 58 L 04/20/17 09:35 Resp 18 04/20/17 07:38 BP 110/56 04/20/17 09:35 Pulse Ox 96 04/20/17 07:38 - Abnormal Lab Findings Abnormal Lab Findings: Abnormal Lab Results 04/20/17 04/20/17 Range/Units 05:50 05:50 RBC 2.83 L (4.2-5.4) M/mm3 Hgb 8.8 L (12.5-16.0) gm/dL Hct 26.3 L (37.0-47.0) % MCH 31.1 H (27-31) pg Plt Count 140 L (150-450) K/mm3 MPV 10.4 H (6.0-9.5) fl Random Glucose 115 H (70-110) mg/dL - Exam Constitutional: Present: Alert, Oriented x3, Cooperative, Well developed, Well nourished, No distress, Elderly ENT Exam: Present: hearing grossly normal, moist mucous membranes Respiratory: Present: normal breath sounds, no respiratory distress, other - Crackles noted at the bases bilaterally which resolved after having patient take a few deep breaths and is most likely consistent with atelectasis Cardiovascular/Chest: Present: no edema, bradycardia, systolic murmur, other - Irregular heart rhythm on exam this morning; likely PVCs vs. PACs Abdomen: Present: soft, nontender, nondistended, hypoactive Extremity: Present: other - s/p Skin Exam: Present: normal color, warm/dry, no cyanosis Neurologic: Present: alert, normal mood/affect, oriented x 3 Appearance: Present: appropriate appearance, appropriate insight, neat, no memory impairment Eye contact: Present: cooperative, good eye contact, normal speech Thoughts: Present: normal thought pattern, no apparent hallucination Cauti Physician Documentation - Urinary Catheter Management Urethral (Gilman) Urethral Indwelling: Yes Date of Insertion: 04/18/17 Time of Insertion: 09:45 Date of Removal: 04/20/17 Time of Removal: 07:00 Assessment/Plan Plan Narrative: IMPRESSION & PLAN Left Femoral Shaft Fracture due to Mechanical Fall -S/P closed reduction, a great intramedullary fixation left femoral shaft fracture by Dr. Young on 04/19/2017 -Continue current medications for pain control. I would recommend using Tylenol and/or tramadol for first-line pain medications. -PT evaluation and treatment/OT -Encouraged patient to use IS as much as possible Post-Operative Acute Blood Loss Anemia -No signs of ongoing active bleeding. Recheck hemogram in the morning. Thrombocytopenia -Possibly reactive and/or dilutional. Continue to monitor for now and recheck hemogram in the morning. Irregular Heart Rhythm -On exam, irregular heart rhythm is most likely secondary to PVCs and/or PACs. EKG ordered. STABLE CHRONIC MEDICAL CONDITIONS: Benign essential hypertension: Continue home beta lilia. Continue to hold home Lisinopril. Goal blood pressure is less than 150/90 mmmHg. Hyperlipidemia: Diet controlled. Osteoporosis: Most recent DEXA scan from 08/01/2016 showed improving bone density measurements when compared to her DEXA scan from August 2012. The patient is currently on vitamin D and calcium supplementation. She was previously on alendronate but this was discontinued in June 2016 and per documentation in [place] it was stopped secondary to medication intolerance. However, per my clinic note in [place] on 07/25/2016 the patient told me that she stopped taking the medication because she didnt know if it was necessary to keep taking it or not. GERD: Well-controlled with diet modifications. Anxiety and depression: Stable on home sertraline which we will continue while the patient is in the hospital. VTE prophylaxis: Per ortho, patient currently on subcutaneous Lovenox, bilateral LEXIS hose and SCDs GI prophylaxis: Patient started on Protonix at admission. The patient does not meet any criteria (i.e., already on a PPI at home, major traumas, major reilly, coagulopathies, mechanical ventilation, certain patients in an ICU setting, history of PUD or upper GI bleeding, receiving high-dose steroids) for inpatient stress ulcer prophylaxis so I have discontinued Protonix. Code Status: Full Code Disposition: Patient will need to be discharged to a SNF. Patient and family working with our behavioral health case manager on arrangements. - Problems/Diagnosis (1) Status post closed reduction with internal fixation Problem: Acute (2) Left femoral shaft fracture Problem: Acute Qualifiers: Fracture type: closed Fracture alignment: displaced (3) Postoperative anemia due to acute blood loss Problem: Acute (4) Thrombocytopenia Problem: Acute (5) Irregular heart rhythm Problem: Acute Narrative: Likely chronic, intermittently appreciated on physical exam (6) Benign essential hypertension Problem: Chronic (7) HLD (hyperlipidemia) Problem: Chronic Qualifiers: Hyperlipidemia type: unspecified Qualified Code(s): E78.5 - Hyperlipidemia , unspecified (8) Osteoporosis Problem: Chronic (9) GERD (gastroesophageal reflux disease) Problem: Chronic Qualifiers: Esophagitis presence: without esophagitis Qualified Code(s): K21.9 - Gastro -esophageal reflux disease without esophagitis (10) Anxiety and depression Problem: Chronic
[2017-04-20] MEDS ORDERED: ACETAMINOPHEN 325 MG TABLET PO PRN (11:47)
[2017-04-20] MEDS: GABAPENTIN 300 MG CAPSULE PO SCH (21:01)
[2017-04-20] MEDS: SENNOSIDES/DOCUSATE SODIUM 1 TAB TABLET PO SCH (21:01)
[2017-04-21] MEDS: traMADol HCL 50 MG TABLET PO PRN ×3 (02:38→11:38)
[2017-04-21 05:51] LABS: Hematocrit 24.2 % (37.0-47.0); Hemoglobin 8.2 gm/dL (12.5-16.0); Mean Cell Volume 91.3 fl (78-100); Mean Corpuscular Hemoglobin 30.9 pg (27-31); Mean Corpuscular Hgb Conc 33.9 g/dl (32-36); Mean Platelet Volume 10.2 fl (6.0-9.5); Platelet Count 138 K/mm3 (150-450); Red Blood Count 2.65 M/mm3 (4.2-5.4); Red Cell Distribution Width 13.2 % (11.5-14.0); White Blood Count 7.6 K/mm3 (4.0-10.5)
[2017-04-21 05:59] LABS: Anion Gap 9.9 mmol/L (6.8-13.8); BUN/Creatinine Ratio 14.8 (9.0-21.6); Calcium * 7.9 mg/dL (7.9-10.9); Carbon Dioxide 28.1 mmol/L (24-32.6); Estimated Creat Clear 45.4
[2017-04-21] MEDS: ENOXAPARIN SODIUM 40 MG/0.4 ML SYRG SC SCH (09:12)
[2017-04-21] MEDS: POLYETHYLENE GLYCOL 3350 119 GM BTL PO SCH (09:12)
[2017-04-21] MEDS: CHOLECALCIFEROL 1,000 UNIT CAPSULE PO SCH (09:12)
[2017-04-21] MEDS: SERTRALINE HCL 50 MG TABLET PO SCH (09:12)
[2017-04-21] MEDS: CALCIUM CARBONATE/VITAMIN D3 1 TAB TABLET PO SCH (09:13)
[2017-04-21] MEDS: METOPROLOL TARTRATE 50 MG TABLET PO SCH ×2 (09:13→20:26)
[2017-04-21] MEDS: LISINOPRIL 40 MG TABLET PO SCH (11:19)
--- NOTE | 2017-04-21 12:20 | PN ---
Subjective - Date and Time Seen Date: 04/21/17 Time: 10:40 Subjective Narrative: Patient seen and examined at bedside this morning. No acute issues overnight. Pain well controlled. Patient had a BM since I saw her last and is urinating on her own without concerns. Overall, patient is doing well and she denies any new issues or concerns. Objective - Review of Systems Generalized/Overall Review: Reports: No Symptoms Reported EENTM: Reports: No Symptoms Reported Respiratory: Reports: No Symptoms Reported Cardiac: Reports: No Symptoms Reported Abdominal: Reports: No Symptoms Reported Genitourinary Symptoms: Reports: No Symptoms Reported Musculoskeletal Complaints: Reports: Other - Left hip/thigh pain Neurological: Reports: No Symptoms Reported Skin: Reports: No Symptoms Reported Endocrine: Reports: No Symptoms Reported Misc: All systems neg except as marked - Vitals Vitals: Last Vital Signs Temp 36.7 C 04/21/17 10:17 Pulse 72 04/21/17 11:19 Resp 20 04/21/17 10:17 BP 152/54 04/21/17 11:19 Pulse Ox 96 04/21/17 10:17 - Abnormal Lab Findings Abnormal Lab Findings: Abnormal Lab Results 04/21/17 04/21/17 Range/Units 05:45 05:45 RBC 2.65 L (4.2-5.4) M/mm3 Hgb 8.2 L (12.5-16.0) gm/dL Hct 24.2 L (37.0-47.0) % Plt Count 138 L (150-450) K/mm3 MPV 10.2 H (6.0-9.5) fl Random Glucose 125 H (70-110) mg/dL - Exam Constitutional: Present: Alert, Oriented x3, Cooperative, Well developed, Well nourished, No distress, Elderly ENT Exam: Present: hearing grossly normal, moist mucous membranes Respiratory: Present: no respiratory distress, no accessory muscle use, other - Crackles noted at the bases bilaterally which resolved after having patient take a few deep breaths and is most likely consistent with atelectasis Cardiovascular/Chest: Present: no edema, other - Irregular rhythm (but not irregularly irregular) Abdomen: Present: Normal bowel sounds, soft, nontender, nondistended Extremity: Present: no pedal edema - s/p CRIF left femur, no calf tenderness, other Skin Exam: Present: normal color, warm/dry, no cyanosis Neurologic: Present: alert, normal mood/affect, oriented x 3 Appearance: Present: appropriate appearance, appropriate insight, neat Eye contact: Present: cooperative, good eye contact, normal speech Thoughts: Present: normal thought pattern, no apparent hallucination Cauti Physician Documentation - Urinary Catheter Management Urethral (Gilman) Urethral Indwelling: Yes Date of Insertion: 04/18/17 Time of Insertion: 09:45 Date of Removal: 04/20/17 Time of Removal: 07:00 Assessment/Plan Plan Narrative: IMPRESSION & PLAN Left Femoral Shaft Fracture due to Mechanical Fall -S/P closed reduction, a great intramedullary fixation left femoral shaft fracture by Dr. Young on 04/19/2017 -Continue current medications for pain control. I would recommend using Tylenol and/or tramadol for first-line pain medications. -PT/OT evaluation and treatment -Encouraged patient to use IS as much as possible Post-Operative Acute Blood Loss Anemia -No signs of ongoing active bleeding. Recheck hemogram in the morning. Thrombocytopenia -Very mild. Possibly reactive and/or dilutional. Continue to monitor for now and recheck hemogram in the morning. Irregular Heart Rhythm -Secondary to PVCs and PACs as demonstrated on the EKG from 04/20/2017. STABLE CHRONIC MEDICAL CONDITIONS: Benign essential hypertension: Continue home beta lilia. Restart home Lisinopril. Goal blood pressure is less than 150/90 mmmHg. Hyperlipidemia: Diet controlled. Osteoporosis: Most recent DEXA scan from 08/01/2016 showed improving bone density measurements when compared to her DEXA scan from August 2012. The patient is currently on vitamin D and calcium supplementation. She was previously on alendronate but this was discontinued in June 2016 and per documentation in [place] it was stopped secondary to medication intolerance. However, per my clinic note in [place] on 07/25/2016 the patient told me that she stopped taking the medication because she didnt know if it was necessary to keep taking it or not. GERD: Well-controlled with diet modifications. Anxiety and depression: Stable on home sertraline which we will continue while the patient is in the hospital. VTE prophylaxis: Per ortho, patient currently on subcutaneous Lovenox, bilateral LEXIS hose and SCDs GI prophylaxis: Patient started on Protonix at admission. The patient does not meet any criteria (i.e., already on a PPI at home, major traumas, major reilly, coagulopathies, mechanical ventilation, certain patients in an ICU setting, history of PUD or upper GI bleeding, receiving high-dose steroids) for inpatient stress ulcer prophylaxis so I have discontinued Protonix. Code Status: Full Code Disposition: Patient will need to be discharged to a SNF. Patient and family working with our briefcase sewer on arrangements. The patient is medically stable for discharge from my standpoint. - Problems/Diagnosis (1) Status post closed reduction with internal fixation Problem: Acute (2) Left femoral shaft fracture Problem: Acute Qualifiers: Fracture type: closed Fracture alignment: displaced (3) Postoperative anemia due to acute blood loss Problem: Acute (4) Thrombocytopenia Problem: Acute (5) Irregular heart rhythm Problem: Acute (6) Benign essential hypertension Problem: Chronic (7) HLD (hyperlipidemia) Problem: Chronic Qualifiers: Hyperlipidemia type: unspecified Qualified Code(s): E78.5 - Hyperlipidemia , unspecified (8) Osteoporosis Problem: Chronic (9) GERD (gastroesophageal reflux disease) Problem: Chronic Qualifiers: Esophagitis presence: without esophagitis Qualified Code(s): K21.9 - Gastro -esophageal reflux disease without esophagitis (10) Anxiety and depression Problem: Chronic
[2017-04-21] MEDS: GABAPENTIN 300 MG CAPSULE PO SCH (20:26)
[2017-04-21] MEDS: SENNOSIDES/DOCUSATE SODIUM 1 TAB TABLET PO SCH (20:26)
[2017-04-22] MEDS: traMADol HCL 50 MG TABLET PO PRN ×3 (01:37→11:58)
[2017-04-22 05:56] LABS: Hematocrit 24.5 % (37.0-47.0); Hemoglobin 8.1 gm/dL (12.5-16.0); Mean Cell Volume 93.2 fl (78-100); Mean Corpuscular Hemoglobin 30.8 pg (27-31); Mean Corpuscular Hgb Conc 33.1 g/dl (32-36); Mean Platelet Volume 10.6 fl (6.0-9.5); Platelet Count 155 K/mm3 (150-450); Red Blood Count 2.63 M/mm3 (4.2-5.4); Red Cell Distribution Width 13.2 % (11.5-14.0); White Blood Count 7.2 K/mm3 (4.0-10.5)
--- NOTE | 2017-04-22 08:27 | PN ---
Subjective - Date and Time Seen Date: 04/22/17 Subjective Narrative: No events overnight. Pain controlled this am. No other complaints. Objective - Vitals Vitals: Last Vital Signs Temp 37.2 C 04/22/17 07:02 Pulse 82 04/22/17 07:02 Resp 18 04/22/17 07:02 BP 140/52 04/22/17 07:02 Pulse Ox 96 04/22/17 07:02 - Abnormal Lab Findings Abnormal Lab Findings: Abnormal Lab Results 04/22/17 Range/Units 05:45 RBC 2.63 L (4.2-5.4) M/mm3 Hgb 8.1 L (12.5-16.0) gm/dL Hct 24.5 L (37.0-47.0) % MPV 10.6 H (6.0-9.5) fl - Exam Exam Narrative: MSK: LLE--> incisions healing appropriately without drainage or erythema, SILT, 5/5 EHL/FHL/DF/PF, distal cap refill <3 sec Cauti Physician Documentation - Urinary Catheter Management Urethral (Gilman) Urethral Indwelling: Yes Date of Insertion: 04/18/17 Time of Insertion: 09:45 Date of Removal: 04/20/17 Time of Removal: 07:00 Assessment/Plan Plan Narrative: 81 yo F w/ L femoral shaft fx s/p IMN, POD #3. - WBAT, ROM as tolerated - reg diet - oral pain control - acute blood loss anemia - Hgb stable, monitor - DVT ppx: lovenox, SCDs, teds - PT/OT - dispo: d/c to SNF today - Problems/Diagnosis (1) Femur fracture, left Problem: Acute Qualifiers: Encounter type: initial encounter Femur location: shaft Fracture type: closed Fracture morphology: transverse Fracture alignment: displaced Qualified Code(s): S72.322A - Displaced transverse fracture of shaft of left femur, initial encounter for closed fracture
--- NOTE | 2017-04-22 08:40 | DS ---
(1) Femur fracture, left Problem: Acute Qualifiers: Encounter type: initial encounter Femur location: shaft Fracture type: closed Fracture morphology: transverse Fracture alignment: displaced Qualified Code(s): S72.322A - Displaced transverse fracture of shaft of left femur, initial encounter for closed fracture Description of Stay: The patient was admitted on 04/18/17 with a L femoral shaft fracture and taken to the OR on the morning of 04/19/17 for intramedullary nailing. She tolerated the procedure well and there were no complications. She was admitted to the floor postoperatively where vitals and labs were followed. She remained medically stable on the floor. She resumed a normal diet and normal bladder/ bowel function. Pain was controlled with oral pain meds. Wound was followed and showed no signs of infection. Patient made excellent mobility gains with PT. She was deemed stable for discharge to SNF on 04/22/17. Procedures Performed: see notes below List Procedures: Intramedullary nailing of L femoral shaft fracture - 04/19/17 Discharge Disposition: Other HealthCare facility Disposition: Other health care facility Condition: Good Discharge Activity: Activity as tolerated, Weight bearing - WBAT, ROM as tolerated LLE Discharge Level of Care:: SNF - Custodial Custodial Therapy: Physicial Therapy Referrals: Gracie Olivas DO [Primary Care Provider] - Additional Patient Instructions (free text): Orthopedic Disharge Instructions: 1. WBAT, ROM LLE 2. Oral pain meds 3. Change dressings every 2-3 days with 4x4 gauze and tegaderm. Keep wounds completely dry until follow up appointment. Sponge baths only. 4. PT for progressive upright mobility and strengthening. 5. DVT ppx: knee high chula hose, lovenox for 7 more days followed by 6 weeks of 325 mg ASA daily. 6. Follow up in [address] Young in [facility] Orthopedic clinic ([phone]) . 7. Call the Orthopedic with any concerns ([phone]). Prescriptions (Any new or edited meds): Aspirin 325 mg PO DAILY #42 tablet Cyclobenzaprine HCl [Flexeril] 10 mg PO TID PRN #40 tablet PRN Reason: Muscle Spasm Enoxaparin Sodium [Lovenox] 40 mg SC Q24H #7 disp.syrin HYDROcodone/ACETAMINOPHEN [Hydrocodon-Acetaminophen 5-325] 1 each PO Q6H PRN # 50 tablet PRN Reason: Pain Complete Home Medications List: Complete Home Medication List: Albuterol Sulfate [Proair Respiclick] 90 mcg IH Q4H PRN 04/18/17 Calc/D3/Mag/Zn/Noel/Andriy/Fenton [Calcium 600 mg Plus Vit D Tab] 1 each PO DAILY 04/18/17 Cholecalciferol (Vitamin D3) [Vitamin D3] 1,000 unit PO DAILY 04/18/17 Clobetasol Propionate/Emoll [Clobetasol Emollient 0.05% Crm] 1 appl TP DAILY PRN 04/18/17 Gabapentin 300 mg PO HS 04/18/17 Metoprolol Tartrate [Lopressor] 50 mg PO BID 04/18/17 Polyethylene Glycol 3350 [Miralax] 17 gm PO DAILY 04/18/17 Sertraline HCl [Zoloft] 50 mg PO DAILY 04/18/17 traMADol HCL [Ultram] 50 mg PO PRN 04/18/17 Lisinopril [Zestril] 40 mg PO DAILY 04/19/17 Aspirin 325 mg PO DAILY #42 tablet 04/22/17 Cyclobenzaprine HCl [Flexeril] 10 mg PO TID PRN #40 tablet 04/22/17 Enoxaparin Sodium [Lovenox] 40 mg SC Q24H #7 disp.syrin 04/22/17 HYDROcodone/ACETAMINOPHEN [Hydrocodon-Acetaminophen 5-325] 1 each PO Q6H PRN # 50 tablet 04/22/17
--- NOTE | 2017-04-22 08:53 | PN ---
Subjective - Date and Time Seen Date: 04/22/17 Time: 07:50 Subjective Narrative: Patient seen and examined at bedside this morning. No acute issues overnight. Pain well controlled. Overall, patient is doing well and she denies any new issues or concerns. Objective - Review of Systems Generalized/Overall Review: Reports: Weakness, Fatigue EENTM: Reports: No Symptoms Reported Respiratory: Reports: No Symptoms Reported Cardiac: Reports: No Symptoms Reported Abdominal: Reports: No Symptoms Reported Genitourinary Symptoms: Reports: No Symptoms Reported Musculoskeletal Complaints: Reports: Other - post-op left hip/thigh pain Neurological: Reports: No Symptoms Reported Skin: Reports: No Symptoms Reported Endocrine: Reports: No Symptoms Reported Misc: All systems neg except as marked - Vitals Vitals: Last Vital Signs Temp 37.2 C 04/22/17 07:02 Pulse 82 04/22/17 07:02 Resp 18 04/22/17 07:02 BP 140/52 04/22/17 07:02 Pulse Ox 96 04/22/17 07:02 - Abnormal Lab Findings Abnormal Lab Findings: Abnormal Lab Results 04/22/17 Range/Units 05:45 RBC 2.63 L (4.2-5.4) M/mm3 Hgb 8.1 L (12.5-16.0) gm/dL Hct 24.5 L (37.0-47.0) % MPV 10.6 H (6.0-9.5) fl - Exam Constitutional: Present: Alert, Oriented x3, Cooperative, Well developed, Well nourished, No distress, Elderly ENT Exam: Present: hearing grossly normal, moist mucous membranes Respiratory: Present: lungs clear, normal breath sounds, no respiratory distress , no accessory muscle use Cardiovascular/Chest: Present: no edema, other - irregular rhythm Abdomen: Present: Normal bowel sounds, soft, nontender, nondistended Extremity: Present: other - s/p CRIF left femur Skin Exam: Present: warm/dry, no cyanosis Neurologic: Present: alert, normal mood/affect, oriented x 3 Appearance: Present: appropriate appearance, appropriate insight, neat Eye contact: Present: cooperative, good eye contact, normal speech Thoughts: Present: normal thought pattern, no apparent hallucination Cauti Physician Documentation - Urinary Catheter Management Urethral (Gilman) Urethral Indwelling: Yes Date of Insertion: 04/18/17 Time of Insertion: 09:45 Date of Removal: 04/20/17 Time of Removal: 07:00 Assessment/Plan Plan Narrative: IMPRESSION & PLAN Left Femoral Shaft Fracture due to Mechanical Fall -S/P closed reduction, a great intramedullary fixation left femoral shaft fracture by Dr. Young on 04/19/2017 -Continue current medications for pain control. I would recommend using Tylenol and/or tramadol for first-line pain medications. -PT/OT evaluation and treatment -Encouraged patient to use IS as much as possible Post-Operative Acute Blood Loss Anemia -No signs of ongoing active bleeding. Hemoglobin stable. Thrombocytopenia - Resolved -Very mild. Likely reactive and/or dilutional. Irregular Heart Rhythm -Secondary to PVCs and PACs as demonstrated on the EKG from 04/20/2017. STABLE CHRONIC MEDICAL CONDITIONS: Benign essential hypertension: Continue home beta lilia. Continue home Lisinopril. Goal blood pressure is less than 150/90 mmmHg. Hyperlipidemia: Diet controlled. Osteoporosis: Most recent DEXA scan from 08/01/2016 showed improving bone density measurements when compared to her DEXA scan from August 2012. The patient is currently on vitamin D and calcium supplementation. She was previously on alendronate but this was discontinued in June 2016 and per documentation in [place] it was stopped secondary to medication intolerance. However, per my clinic note in [place] on 07/25/2016 the patient told me that she stopped taking the medication because she didnt know if it was necessary to keep taking it or not. GERD: Well-controlled with diet modifications. Anxiety and depression: Stable on home sertraline which we will continue while the patient is in the hospital. VTE prophylaxis: Per ortho, patient currently on subcutaneous Lovenox, bilateral LEXIS hose and SCDs GI prophylaxis: Patient started on Protonix at admission. The patient does not meet any criteria (i.e., already on a PPI at home, major traumas, major reilly, coagulopathies, mechanical ventilation, certain patients in an ICU setting, history of PUD or upper GI bleeding, receiving high-dose steroids) for inpatient stress ulcer prophylaxis so I have discontinued Protonix. Code Status: Full Code Disposition: Patient will need to be discharged to a SNF. Patient and family working with our senior case manager on arrangements. The patient is medically stable for discharge from my standpoint. - Problems/Diagnosis (1) Status post closed reduction with internal fixation Problem: Acute (2) Left femoral shaft fracture Problem: Acute Qualifiers: Fracture type: closed Fracture alignment: displaced (3) Postoperative anemia due to acute blood loss Problem: Acute (4) Thrombocytopenia Problem: Acute (5) Irregular heart rhythm Problem: Acute (6) Benign essential hypertension Problem: Chronic (7) HLD (hyperlipidemia) Problem: Chronic Qualifiers: Hyperlipidemia type: unspecified Qualified Code(s): E78.5 - Hyperlipidemia , unspecified (8) Osteoporosis Problem: Chronic (9) GERD (gastroesophageal reflux disease) Problem: Chronic Qualifiers: Esophagitis presence: without esophagitis Qualified Code(s): K21.9 - Gastro -esophageal reflux disease without esophagitis (10) Anxiety and depression Problem: Chronic
[2017-04-22] MEDS: ENOXAPARIN SODIUM 40 MG/0.4 ML SYRG SC SCH (09:55)
[2017-04-22] MEDS: CHOLECALCIFEROL 1,000 UNIT CAPSULE PO SCH (09:56)
[2017-04-22] MEDS: CALCIUM CARBONATE/VITAMIN D3 1 TAB TABLET PO SCH (09:56)
[2017-04-22] MEDS: SERTRALINE HCL 50 MG TABLET PO SCH (09:56)
[2017-04-22] MEDS: METOPROLOL TARTRATE 50 MG TABLET PO SCH (09:56)
[2017-04-22] MEDS: LISINOPRIL 40 MG TABLET PO SCH (09:59)
[2017-04-22] MEDS: POLYETHYLENE GLYCOL 3350 119 GM BTL PO SCH (10:00)
[2017-04-22 10:49] VITALS: BP 146/64
== END 2017-04-22 13:02 | DRG 481 ==
LOC: ER 15:07 → MS 17:28
PROVIDERS: ADMIT Orthopaedic Surgery; ATTEND Orthopaedic Surgery
PROC: 0QS736Z Reposition Left Upper Femur with Intramedullary Internal Fixation Device, Percutaneous Approach (ICD-10-PCS; principal; 2017-04-19 07:00)
DX: S72.322A Displaced transverse fracture of shaft of left femur, initial encounter for closed fracture (principal); D62 Acute posthemorrhagic anemia; W01.0XXA Fall on same level from slipping, tripping and stumbling without subsequent striking against object, initial encounter; Y92.480 Sidewalk as the place of occurrence of the external cause; R32 Unspecified urinary incontinence; R00.1 Bradycardia, unspecified; I10 Essential (primary) hypertension; J44.9 Chronic obstructive pulmonary disease, unspecified; G93.89 Other specified disorders of brain; T42.4X5A Adverse effect of benzodiazepines, initial encounter; Y92.239 Unspecified place in hospital as the place of occurrence of the external cause
CPT/HCPCS: 27232; 27502; 36415; 73552; 76000; 80048; 81001; 83735; 85025; 85027; 87086; 93005; 96365; 96375; 97110; 97116; 97161; 97165; 97535; 99284; J2405